=== PATIENT | female | born 1985 | race Caucasian/White ===

== ENCOUNTER 2020-03-22 08:10 | Inpatient (IN) | payer OTHER ==
[2020-03-22] MEDS ORDERED: CITRIC ACID/SODIUM CITRATE 30 ML UNIT-DOSE CUP PO ONE ×2 (09:24→09:32)
[2020-03-22] MEDS ORDERED: ELECTROLYTE-148 SOLN 1,000 ML IV SCH (09:30)
--- NOTE | 2020-03-22 09:31 | HP ---
Past Medical History - Admission Chief Complaint: previous section History Source: Patient Limitations to Obtaining History: No Limitations - Past Medical History ...: 4 ...Para: 3 ...Term: 3 ...Living Children: 3 ...LMP: 07/16/19 ... Weeks Gestation by Dates: 40 ...EDC by Dates: 03/16/20 - Past Surgical History Past Surgical History: Yes: Hx Myomectomy: No Hx Transabdominal Cerclage: No - Smoking History Have you smoked in the past 12 months: No - Alcohol/Substance Use Hx Alcohol Use: No History of Substance Use: reports: None - Social History Usual Living Arrangement: Yes: With Spouse Do you think of yourself as: Straight/Heterosexual History of Recent Travel: No Review of Systems - Review of Systems Constitutional: reports: No Symptoms Eyes: reports: No Symptoms HENT: reports: No Symptoms Neck: reports: No Symptoms Cardiovascular: reports: No Symptoms Respiratory: reports: No Symptoms Gastrointestinal: reports: No Symptoms Genitourinary: reports: No Symptoms Breasts: reports: No Symptoms Reported Musculoskeletal: reports: No Symptoms Integumentary: reports: No Symptoms Neurological: reports: No Symptoms Endocrine: reports: No Symptoms Hematology/Lymphatic: reports: No Symptoms Psychiatric: reports: No Symptoms Physical Exam - Maternity Constitutional: Yes: Well Nourished, No Distress, Calm Eyes: Yes: WNL, Conjunctiva Clear, EOM Intact HENT: Yes: WNL, Atraumatic, Normocephalic Neck: Yes: WNL, Supple, Trachea Midline Cardiovascular: Yes: WNL, Regular Rate and Rhythm Breast(s): Yes: WNL - Abdominal Exam/OB Number of Fetuses: Single Presentation: Vertex Contractions: Yes Regularity: Irritability Intensity: Unaware Monitor Mode: External Category: I Accelerations: Uniform Decelerations: None - Vaginal Exam/OB Vaginal Bleeding: No Speculum Exam: No Amniotic Membrane Status: Intact Presentation: Vertex/Position - Physical Exam Musculoskeletal: Yes: WNL Extremities: Yes: WNL Integumentary: Yes: WNL ...Motor Strength: WNL Psychiatric: Yes: WNL Assessment/Plan IUP at 40 weeks for repeat section plan repeat section
[2020-03-22] MEDS ORDERED: ceFAZolin 2 GRAM PREMIX BAG IVPB SCH (09:45)
[2020-03-22 09:46] VITALS: BMI 29.0
[2020-03-22] MEDS ORDERED: morphine SULFATE/PF 0.5 MG/ML (2cc Syringe - QUVA) ONE (10:00)
[2020-03-22] MEDS ORDERED: ceFAZolin SODIUM 1 GM VIAL ONE ×2 (11:09)
[2020-03-22] MEDS ORDERED: OXYTOCIN 10 UNITS/ML VIAL ONE ×2 (11:09)
[2020-03-22] MEDS ORDERED: IBUPROFEN 600 MG TABLET (FP) PO PRN (11:33)
[2020-03-22] MEDS ORDERED: ONDANSETRON 4 MG/2 ML VIAL IVPUSH PRN (11:33)
[2020-03-22] MEDS ORDERED: METHYLERGONOVINE MALEATE 0.2 MG/1 ML AMP IM PRN (11:33)
--- NOTE | 2020-03-22 11:33 | OP ---
Operative Note - Note: Operative Date: 03/22/20 Pre-Operative Diagnosis: repeat section Operation: repeat section. pfanensteel abdominal. low transverse uterine incision Findings: baby girl Post-Operative Diagnosis: Same as Pre-op Surgeon: Nash Nathan Assistant Accounting Manager: Channing Newman Anesthesia: Spinal Specimens Removed: none Estimated Blood Loss (mls): 600 Operative Report Dictated: Yes
[2020-03-22] MEDS ORDERED: OXYTOCIN 20 UNITS in 0.9% NS 20 UNIT/1,000 ML INFUS.BAG IV ONE (11:42)
[2020-03-22] MEDS ORDERED: KETOROLAC TROMETHAMINE 30 MG/1 ML VIAL ONE (13:14)
[2020-03-22] MEDS: KETOROLAC TROMETHAMINE 30 MG/1 ML VIAL IVPUSH PRN ×2 (13:23→22:59)
[2020-03-23] MEDS: ACETAMINOPHEN 325 MG TABLET (FP) PO PRN ×3 (06:25→19:50)
[2020-03-23] MEDS: IBUPROFEN 600 MG TABLET (FP) PO PRN ×3 (06:26→19:50)
[2020-03-23] MEDS: SIMETHICONE 80 MG TAB.CHEW (FP) PO PRN ×3 (06:26→19:50)
[2020-03-23 08:46] LABS: BASO % 0.5 % (0-2.0); EOS % 0.4 % (0-4.5); HEMATOCRIT 25.9 % (32.4-45.2); HEMOGLOBIN 8.2 GM/dL (10.7-15.3); LYMPH % 19.7 % (8-40); MCH 24.3 pg (25.7-33.7); MCHC 31.7 g/dl (32.0-36.0); MEAN CELL VOLUME 76.7 fl (80-96); MONO % 6.7 % (3.8-10.2); NEUT % 72.7 % (42.8-82.8); PLATELET COUNT 223 K/MM3 (134-434); RBC 3.38 M/mm3 (3.60-5.2); RDW 16.7 % (11.6-15.6); WHITE BLOOD COUNT 7.5 K/mm3 (4.0-10.0)
[2020-03-23] MEDS ORDERED: DIPHTH,PERTUSS(ACELL),TET 0.5 ML DISP.SYRIN IM ONE (10:00)
--- NOTE | 2020-03-23 11:07 | PN ---
Progress Note (short form) - Note Progress Note: Post op day#1.S/P C Section under spinal anesthesia with duramorph une ventful.Patient stable and c/o little pain for which she is on medication.No any anesthesia related problem.Patient DC from the anesthesia care.
--- NOTE | 2020-03-23 11:18 | PN ---
Progress Note (short form) - Note Progress Note: pt. without complaints. vss-af abd: soft, nt, nd, fundus firm dressing c/d/i ve: mod lochia ext: no calf tenderness b/l a/p pod 1 s/p pt. stable oob to amb today cbc advance diet as jacy.
[2020-03-23] MEDS ORDERED: BISACODYL 10 MG SUPP.RECT RC PRN (11:34)
[2020-03-24] MEDS: ACETAMINOPHEN 325 MG TABLET (FP) PO PRN ×3 (07:23→21:43)
[2020-03-24] MEDS: SIMETHICONE 80 MG TAB.CHEW (FP) PO PRN ×3 (07:24→21:43)
[2020-03-24] MEDS: IBUPROFEN 600 MG TABLET (FP) PO PRN ×3 (07:24→21:43)
--- NOTE | 2020-03-24 09:57 | PN ---
Post Progress Note - Subjective Subjective: Patient c/o mild incisional pain when walking, otherwise no complaints. Post Day: 2 Type of Delivery: Repeat C/S Vital Signs: Vital Signs Temperature 98.0 F 03/23/20 21:14 Pulse Rate 60 03/23/20 21:14 Respiratory Rate 20 03/23/20 21:14 Blood Pressure 100/69 03/23/20 21:14 O2 Sat by Pulse Oximetry (%) 100 03/22/20 14:00 Breast Exam: Yes: Soft Uterus: Yes: Fundus Firm Incision: Yes: Brant intact Abdomen/GI: Yes: Abdomen soft, Tolerating PO Lochia: Yes: Rubra Lochia, amount: Small Extremities: Yes: Calves non-tender Activity: Ambulating - Labs Labs: CBC WBC 7.5 K/mm3 (4.0-10.0) 03/23/20 07:48 RBC 3.38 M/mm3 (3.60-5.2) L 03/23/20 07:48 Hgb 8.2 GM/dL (10.7-15.3) L 03/23/20 07:48 Hct 25.9 % (32.4-45.2) L 03/23/20 07:48 MCV 76.7 fl (80-96) L 03/23/20 07:48 MCH 24.3 pg (25.7-33.7) L 03/23/20 07:48 MCHC 31.7 g/dl (32.0-36.0) L 03/23/20 07:48 RDW 16.7 % (11.6-15.6) H 03/23/20 07:48 Plt Count 223 K/MM3 (134-434) 03/23/20 07:48 MPV 8.0 fl (7.5-11.1) 03/23/20 07:48 Absolute Neuts (auto) 5.5 K/mm3 (1.5-8.0) 03/23/20 07:48 Neutrophils % 72.7 % (42.8-82.8) 03/23/20 07:48 Lymphocytes % 19.7 % (8-40) D 03/23/20 07:48 Monocytes % 6.7 % (3.8-10.2) 03/23/20 07:48 Eosinophils % 0.4 % (0-4.5) 03/23/20 07:48 Basophils % 0.5 % (0-2.0) 03/23/20 07:48 Nucleated RBC % 0 % (0-0) 03/23/20 07:48 Assessment/Plan POD #2, hemodynamically stable Monitor vitals Pain management Regular diet Ambulation encouraged Consider discharge home in AM
[2020-03-25] MEDS: ACETAMINOPHEN 325 MG TABLET (FP) PO PRN ×2 (04:31→08:35)
[2020-03-25] MEDS: SIMETHICONE 80 MG TAB.CHEW (FP) PO PRN (04:31)
[2020-03-25] MEDS: IBUPROFEN 600 MG TABLET (FP) PO PRN ×2 (04:32→08:36)
[2020-03-25 08:37] LABS: BASO % 0.6 % (0-2.0); EOS % 2.6 % (0-4.5); HEMATOCRIT 26.5 % (32.4-45.2); HEMOGLOBIN 8.4 GM/dL (10.7-15.3); MCH 24.7 pg (25.7-33.7); MCHC 31.5 g/dl (32.0-36.0); MEAN CELL VOLUME 78.4 fl (80-96); MEAN PLT VOLUME 8.1 fl (7.5-11.1); MONO % 6.3 % (3.8-10.2); NEUT % 58.5 % (42.8-82.8); PLATELET COUNT 277 K/MM3 (134-434); RBC 3.38 M/mm3 (3.60-5.2); RDW 16.7 % (11.6-15.6); WHITE BLOOD COUNT 6.8 K/mm3 (4.0-10.0)
[2020-03-25 10:34] VITALS: BP 99/64; PULSE 69; TEMP 98
--- NOTE | 2020-03-25 11:13 | DS ---
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 Vital Signs: Vital Signs Temperature 98.0 F 03/25/20 10:00 Pulse Rate 69 03/25/20 10:00 Respiratory Rate 18 03/25/20 10:00 Blood Pressure 99/64 03/25/20 10:00 O2 Sat by Pulse Oximetry (%) 97 03/24/20 10:00 Constitutional: Yes: Well Nourished Eyes: Yes: WNL HENT: Yes: WNL Neck: Yes: WNL Cardiovascular: Yes: WNL Respiratory: Yes: WNL Internal Exam Deferred: Yes Uterus: Yes: Firm ....Post : Yes: Uterus firm, Slight lochia rubra Extremities: Yes: WNL Edema: No Labs: CBC, BMP 03/25/20 07:42 Delivery - Delivery Type of Anesthesia: Spinal Episiotomy/Laceration: None EBL (cc): 600 Delivery, Single - Stages of Labor Date of Delivery: 03/22/20 Time of Delivery: 11:17 Time Placenta Delivered: 11:18 - Condition of [place] Room Attendant/Form Building Supervisor Present: Yes Name: Yanelis Tiwari Infant Gender: Female Weight: 3.884 kg Position: Left, OA Total Hours ROM (Hrs/Mins): 0hrs 2min - 1 Minute Total Score: 9 5 Minutes Total Score: 9 - [place] Feeding Plan Initial Plan: Elected not to breastfeed exclusively throughout hospitalization Remarks - Remarks Remarks: s/p repeat c section at term; anemia jamison Discharge Summary Problems reviewed: Yes Reason For Visit: C/S Procedures: Principal: repeat c section Hospital Course: anemia Condition: Good - Instructions Diet, Activity, Other Instructions: regular diet follow up with MD office in one week for staple removal Disposition: HOME - Home Medications Comprehensive Discharge Medication List: Ambulatory Orders Pnv No.95/Ferrous Fum/Folic AC [ Vitamin Tablet] 1 each PO DAILY 03/22/20 Prescription Drug Monitoring Program (I-STOP) results: I-STOP reviewed and no issues identified
--- NOTE | 2020-03-27 16:34 | PATH ---
Surgical Pathology Report Patient Name: ADONIS BURTON [facility]. Rec. 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 Specimen(s) Received PLACENTA Clinical History , 40.4 weeks previous , repeat Final Diagnosis PLACENTA: THIRD TRIMESTER PLACENTA. TRIVASCULAR CORD. MEMBRANES WITH NO DIAGNOSTIC ABNORMALITIES. Electronically Signed Hai Gardner M.D. Gross Description The specimen is received fresh labeled placenta and is a 495 gram, 22.0 x 16.0 x 2.3 cm. placenta with attached membranes and umbilical cord. The attached membranes are laura, translucent with focal opacities and insert marginally. The umbilical cord measures 34 cm. in length and averages 1.2 cm. in diameter. The cord inserts eccentrically, 4 cm. to the nearest margin. No true knots or strictures are identified. Cut surface of the umbilical cord reveals 3 vessels. The surface is bennett-blue with minimal fibrin deposition and appropriate caliber vessels. The maternal surface is red-brown with focal defects. Sectioning reveals red-brown, spongy parenchyma. No lesions are identified. Supervisor Cd Area sections are submitted in three cassettes as follows: 1- membrane rolls and umbilical cord; 2-3- full thickness sections of placenta. /03/23/2020 [facility]03/23/2020
--- NOTE | 2020-04-14 20:14 | OP ---
DATE OF OPERATION: 03/22/2020 PREOPERATIVE DIAGNOSIS: Repeat section. POSTOPERATIVE DIAGNOSIS: Repeat section. PROCEDURE: Pfannenstiel abdominal, low-transverse uterine incision. SURGEON: Kusum Beach MD RETAIL ACCOUNT EXECUTIVE: LOUISE Antonio; no MD available. ANESTHESIA: Spinal. SPECIMEN: None. ESTIMATED BLOOD LOSS: 600 mL. DESCRIPTION OF PROCEDURE: Following successful induction of spinal anesthesia, patient was prepped and draped in usual aseptic in dorsal supine position. Pfannenstiel abdominal incision was made over the previous existing incision, was carried down to the level of the fascia. Fascia was identified and entered. Peritoneum was identified and entered. Upon entering the peritoneal cavity, uterus was identified. Low transverse uterine incision was made, and baby was delivered to the chemistry intern in attendance. Following this, the placental membranes were removed. Endometrial contents were cleaned using a dry lap pad. Then, the uterine incision was identified with T clamps and closed using No. 1 chromic in a continuous locking stitch. There was excellent hemostasis at the end of this procedure. Following this, the gutters were cleaned. All blood clots and debris were removed. The area was observed for hemostasis. Once there was noted to be excellent hemostasis, the case was terminated. The fascia was closed using No. 1 Vicryl in a continuous stitch. The skin incision was closed using jamison. KUSUM BEACH MD /[id number]
== END 2020-03-25 15:20 | disposition home or self-care (01) | DRG 540 ==
LOC: JLDR 08:10 → J3W 16:25
PROVIDERS: ADMIT Specialist; ATTEND Specialist
PROC: 10D00Z1 Extraction of Products of Conception, Low, Open Approach (ICD-10-PCS; principal; 2020-03-22)
DX: O48.0 Post-term pregnancy (principal); Z37.0 Single live birth; O34.219 Maternal care for unspecified type scar from previous cesarean delivery; O99.02 Anemia complicating childbirth; D64.9 Anemia, unspecified; Z3A.40 40 weeks gestation of pregnancy
CPT/HCPCS: 36415; 85025; 88307-TC; 90715